=== PATIENT | female | born 1960 | race Caucasian/White ===

== ENCOUNTER 2017-03-17 22:48 | Emergency (ER) | payer BC, OTHER ==
[~2017-03-17] VITALS: Ht 167.6 cm; Wt 76.2 kg
[~2017-03-17 22:48] MED LIST: ALPR.25 PO; ATOR20TA PO; BUPR100CR PO; CARV6.25 PO; ECOT81TA2 PO; LISI20 PO
[2017-03-17 22:56] VITALS: BP 126/84; PULSE 73; RESP 14; TEMP 98.1; O2SAT 98
[2017-03-17] MEDS ORDERED: CARV6.252 PO (23:07)
[2017-03-17] MEDS ORDERED: SERT-129 PO (23:07)
[2017-03-17] MEDS ORDERED: ALPR.25 PO (23:07)
[2017-03-17] MEDS ORDERED: CLOP75TA PO (23:07)
[2017-03-17] MEDS ORDERED: LISI10TA3 PO (23:07)
[2017-03-17] MEDS ORDERED: ATOR20TA15 PO (23:07)
[2017-03-17] MEDS ORDERED: oxyCODONE/ACETAMINOPHEN 5 MG/325 MG TAB PO ONE (23:30)
--- NOTE | 2017-03-17 23:30 | PD ---
HPI Chief Complaint: Injury Time Seen by Provider: 23:00 Travel History International Travel<30 days: No Contact w/Intl Traveler<30days: No Traveled to known affect area: No History of Present Illness HPI This 56-year-old female complaining of pain in her right elbow. She had a fall at home and landed on her right elbow. She did not hit her head. There is no other injury. She has a history of Takasubu cardiomyopathy she is having a lot of pain in her right elbow PFS Past Medical History Anxiety: Yes Depression: Yes Heart Rhythm Problems: No Cancer: No Cardiovascular Problems: Yes High Cholesterol: No Chest Pain: Yes Congestive Heart Failure: No Diminished Hearing: No Endocrine: No Genitourinary: No Hypertension: Yes (assoc w/anxiety) Immune Disorder: No Musculoskeletal: No Neurologic: Yes Psychiatric: No Reproductive: No Respiratory: No Immunizations Current: No Migraines: Yes (ONCE IN A [place], FAMILY HX ) Tetanus Vaccination: > 5 Years Influenza Vaccination: No ?: Not LMP: POST MENAPAUSAL : 6 Para: 4 Miscarriage: 2 Past Surgical History Abdominal Surgery: No Cardiac Surgery: No Ear Surgery: No Endocrine Surgery: No Eye Surgery: No Genitourinary Surgery: No Gynecologic Surgery: Yes (PELVIC SLING) Oral Surgery: Yes (DENTURES ) Thoracic Surgery: No Other Surgery: Yes (breast ) Social History Alcohol Use: Yes (rarely) Tobacco Use: No Substance Use: No Allergies-Medications (Allergen,Severity, Reaction): Coded Allergies: No Known Allergies (Verified , 03/15/15) Reported Meds & Prescriptions Reported Meds & Active Scripts Active Reported Sertraline (Sertraline HCl) 100 Mg Tab 100 Mg PO DAILY Lisinopril 10 Mg Tab 10 Mg PO DAILY Clopidogrel (Clopidogrel Bisulfate) 75 Mg Tab 75 Mg PO DAILY Carvedilol 6.25 Mg Tab 6.25 Mg PO BID Atorvastatin (Atorvastatin Calcium) 20 Mg Tab 20 Mg PO HS Xanax (Alprazolam) 0.25 Mg Tab 0.25 Mg PO BID PRN Review of Systems General / Constitutional: No: Fever, Chills Eyes: No: Diploplia HENT: No: Headaches Cardiovascular: No: Chest Pain or Discomfort, Palpitations Respiratory: No: Shortness of Breath Gastrointestinal: No: Vomiting Genitourinary: No: Urgency, Frequency Musculoskeletal: Positive: Myalgias, Pain Skin: No Rash, No Itching Physical Exam Narrative GENERAL: Well-developed female SKIN: Focused skin assessment warm/dry. HEAD: Atraumatic. Normocephalic. EYES: Pupils equal and round. No scleral icterus. No injection or drainage. ENT: No nasal bleeding or discharge. Mucous membranes pink and moist. NECK: Trachea midline. No JVD. CARDIOVASCULAR: Regular rate and rhythm. No murmur appreciated. RESPIRATORY: No accessory muscle use. Clear to auscultation. Breath sounds equal bilaterally. GASTROINTESTINAL: Abdomen soft, non-tender, nondistended. Hepatic and splenic margins not palpable. MUSCULOSKELETAL: No obvious deformities. No clubbing. No cyanosis. No edema. There is really no point tenderness of the shoulder. The elbow is quite tender to palpation and she resists any attempts at movement. The skin is intact. Distal sensation is intact NEUROLOGICAL: Awake and alert. No obvious cranial nerve deficits. Motor grossly within normal limits. Normal speech. PSYCHIATRIC: Appropriate mood and affect; insight and judgment normal. Data Data Last Documented VS Vital Signs Date Time Temp Pulse Resp B/P Pulse Ox O2 Delivery O2 Flow Rate FiO2 03/17/17 23:15 72 16 98 Room Air 03/17/17 22:56 98.1 126/84 Orders Elbow, Complete (4 Vws) (03/17/17 23:26) Oxycodone-Acetamin 5-325 Mg (Percocet (03/17/17 23:30) Splint Or Brace Apply/Monitor (03/17/17 23:58) MDM Medical Decision Making Medical Screen Exam Complete: Yes Emergency Medical Condition: Yes Medical Record Reviewed: Yes Differential Diagnosis Differential includes contusion, fracture, dislocation Narrative Course X-ray shows a fracture of the radial head. Patient is quite uncomfortable with the pain so I will initiate treatment with a splint. Diagnosis Primary Impression: Fracture of radial head, closed Qualified Code: S52.124A - Closed nondisplaced fracture of head of right radius, initial encounter Scripts Oxycodone-Acetaminophen (Percocet)7.5-325 mg Tab1 Tab PO Q4H PRN (PAIN) #30 TAB Ref 0 Prov:Velasquez Schofield MD 03/18/17 Disposition: 01 DISCHARGE HOME Condition: Stable Velasquez Schofield MD March 17, 2017 23:30
--- NOTE | 2017-03-17 23:57 | RADHPO ---
EXAM DATE/TIME: 03/17/2017 23:40 [facility] COMPARISON: No previous studies available for comparison. INDICATIONS : Right elbow pain post fall. MEDICAL HISTORY : None. SURGICAL HISTORY : None. ENCOUNTER: Initial ACUITY: 1 day PAIN SCORE: 10/10 LOCATION: Right upper extremity FINDINGS: There is a joint effusion present. There is a fracture through the head of the radius. The fracture a ppears to be nondisplaced. The rest of the bony structures are grossly intact. No joint dislocation i s demonstrated. CONCLUSION: Nondisplaced fracture of the radial head. Ajay Corea MD on March 17, 2017 at 23:55 Board Certified Radiologist. This report was verified electronically.
[2017-03-18] MEDS ORDERED: PERC7.5T13 PO (00:01)
[2017-03-18 00:20] VITALS: BP 136/71; PULSE 66; RESP 16; O2SAT 99
== END 2017-03-18 00:30 | disposition home or self-care (01) ==
LOC: PHED 22:48
DX: S52.124A Nondisplaced fracture of head of right radius, initial encounter for closed fracture (principal); I10 Essential (primary) hypertension; Z86.79 Personal history of other diseases of the circulatory system; Z86.69 Personal history of other diseases of the nervous system and sense organs; Z86.59 Personal history of other mental and behavioral disorders; W19.XXXA Unspecified fall, initial encounter; Y92.009 Unspecified place in unspecified non-institutional (private) residence as the place of occurrence of the external cause
CPT/HCPCS: 29105; 73080